=== PATIENT | male | born 1955 | race Caucasian/White ===

== ENCOUNTER 2018-09-09 12:15 | Inpatient (IN) | payer MEDICAID, OTHER ==
[~2018-09-09] VITALS: Ht 172.7 cm; Wt 78.0 kg
[2018-09-09 12:49] LABS: BASOPHILS % (AUTO) 0.3 % (0.0-2.0); EOSINOPHILS # (AUTO) 0.1 K/uL (0.0-0.7); EOSINOPHILS % (AUTO) 0.8 % (0.0-7.0); HEMATOCRIT 34.6 % (36.7-47.1); HEMOGLOBIN 11.8 g/dL (12.5-16.3); LYMPHOCYTES # (AUTO) 0.9 K/uL (20.0-40.0); LYMPHOCYTES % (AUTO) 8.6 % (20.5-51.5); MEAN CORPUSCULAR HEMOGLOBIN 30.2 uug (23.8-33.4); MEAN CORPUSCULAR HGB CONC 34 g/dL (32.5-36.3); MEAN CORPUSCULAR VOLUME 88.7 fL (73.0-96.2); MONOCYTES # (AUTO) 1.2 K/uL (2.0-10.0); MONOCYTES % (AUTO) 11.1 % (0.0-11.0); NEUTROPHILS # (AUTO) 8.3 K/uL (1.8-8.9); NEUTROPHILS % (AUTO) 79.2 % (38.5-71.5); PLATELET COUNT (AUTO) 279 K/uL (152-348); WHITE BLOOD COUNT (AUTO) 10.5 K/uL (3.6-10.2)
[2018-09-09 12:53] LABS: CREATININE 1.2 mg/dL (0.6-1.3); POTASSIUM 4.9 mmol/L (3.5-5.1)
[2018-09-09 12:59] LABS: BILIRUBIN,DIRECT 0.2 mg/dL (0.0-0.2); BILIRUBIN,TOTAL 0.6 mg/dL (0.2-1.0); TOTAL PROTEIN, SERUM 8.5 g/dL (6.4-8.2)
[2018-09-09 13:16] LABS: *BILIRUBIN,URIN NEGATIVE (NEGATIVE); *CLARITY,URINE CLEAR (CLEAR); *COLOR,URINE YELLOW (YELLOW); *KETONES,URINE TRACE (NEGATIVE); LEUKOCYTE ESTERASE ,URINE NEGATIVE (NEGATIVE); NITRITE, URINE NEGATIVE (NEGATIVE); PH,URINE 5.5 (5.0-8.0); UGLUCOSE NEGATIVE (NEGATIVE)
[2018-09-09 13:17] LABS: *BLOOD, URINE TRACE (NEGATIVE)
[2018-09-09 13:18] LABS: BACTERIA,URINE FEW /HPF (NONE SEEN); MUCUS,URINE FEW /LPF (0-FEW); RBC,URINE 0-3 /HPF (0-3); SQUAMOUS EPITHELIAL CELL,UR FEW /HPF (NONE SEEN); WBC,URINE 0-3 /HPF (0-3)
--- NOTE | 2018-09-09 13:27 | NUR ---
1st contact with patient, -patient is AOx4,just came from CT scan, patient is calm & breathing easily, +tolerable abdominal pains, refused pain medicines@this time
[2018-09-09] MEDS ORDERED: JANUMET (13:33)
[2018-09-09] MEDS ORDERED: GLIMEPIRIDE (13:33)
[2018-09-09] MEDS ORDERED: CLOP75TA15 PO (13:33)
[2018-09-09] MEDS ORDERED: LIPITOR (13:33)
[2018-09-09] MEDS ORDERED: INSU100V7 SQ (13:33)
[2018-09-09] MEDS ORDERED: ASPI81TA31 PO (13:33)
[2018-09-09] MEDS ORDERED: METOPROLOL (13:33)
[2018-09-09] MEDS ORDERED: METRONIDAZOLE 500 MG/NS 100 ML PIGGYBACK IV ONE (13:45)
[2018-09-09] MEDS ORDERED: MORPHINE SULFATE 4 MG/1 ML DISP.SYRIN IV ONE (13:45)
[2018-09-09] MEDS ORDERED: MORPHINE SULFATE 4 MG/1 ML DISP.SYRIN ONE (13:45)
[2018-09-09] MEDS ORDERED: CEFTRIAXONE 2 G in IV DEXTROSE 5% 100 ML IV ONE (13:45)
[2018-09-09] MEDS ORDERED: METRONIDAZOLE 500 MG/NS 100ML 100 ML IV ONE (13:46)
[2018-09-09] MEDS ORDERED: MORPHINE SULFATE 2 MG/1 ML DISP.SYRIN IV PRN (14:15)
[2018-09-09] MEDS ORDERED: DEXTROSE 50% 50 ML DISP.SYRIN IV PRN (14:15)
[2018-09-09] MEDS ORDERED: ONDANSETRON 4 MG/2 ML VIAL IV PRN (14:15)
[2018-09-09] MEDS ORDERED: HYDROCODONE/APAP 5-325MG TABLET PO PRN (14:15)
[2018-09-09] MEDS ORDERED: Z GUARD REMEDY PASTE 57 GM TUBE TOP PRN (14:15)
[2018-09-09] MEDS ORDERED: MAGNESIUM HYDROXIDE 30 ML LIQUID UDC PO PRN (14:15)
[2018-09-09] MEDS ORDERED: HYDROCODONE/APAP 10-325 MG TABLET PO PRN (14:15)
[2018-09-09] MEDS ORDERED: ACETAMINOPHEN 325 MG TABLET PO PRN (14:15)
--- NOTE | 2018-09-09 14:28 | NUR ---
2nd floor Nurse Sarah accepted hands off report, pending admitting papers from ER registration staff Gurdeep@this time
--- NOTE | 2018-09-09 15:15 | NUR ---
PATIENT ADMITTED TO ROOM 325 UNDER MEDSUR UNIT FROM ER, ARRIVED VIA [facility]ATTY, AAOX4 AMBULATORY. DIAGNOSIS: RUPTURED APPENDICITIS. ORIENTED TO ROOM AND UNIT. ADMISSION ORDERS FROM GISELA GARCIA. NURSING ADMISSION ASSESSMENTS TO BE COMPLETED. COMFORT MEASURES PROVIDED CALL LIGHT WITHIN REACH. WILL CONTINUE TO MONITOR CLOSELY.
[2018-09-09 15:19] VITALS: BP 126/64
[2018-09-09] MEDS: IV D5 1/2 NS 1000 ML 1,000 ML IV PRN (16:15)
[2018-09-09] MEDS: BLOOD SUGAR DIAGNOSTIC 1 EACH STRIP VI SCH ×2 (16:18→20:55)
--- NOTE | 2018-09-09 17:30 | NUR ---
PATIENT SEEN AND EXAMINED BY DR. HENDERSON W/ ORDERS FOR CT GUIDED APPENDICEAL ABSCESS, ZOSYN IV ATB Q8HRS, ROCEPHIN 2MG IV Q DAILY, NOTED AND CARRIED OUT. PROCEDURE CONSENT SIGNED BY PATIENT AND PLACED IN CHART.
[2018-09-09 19:33] VITALS: BP 114/56
[2018-09-09] MEDS: METRONIDAZOLE 500 MG/NS 100ML 500 MG in PREMIXED 1 EACH IV SCH (20:55)
[2018-09-09] MEDS: FAMOTIDINE. 20 MG/2 ML VIAL IV SCH (20:55)
[2018-09-09] MEDS: ATORVASTATIN 10 MG TABLET PO SCH (21:00)
[2018-09-09] MEDS: DOCUSATE SODIUM 250 MG CAPSULE PO SCH (21:00)
[2018-09-09] MEDS: INSULIN GLARGINE,HUM 300 UNITS/3 ML CARTRIDGE SQ SCH (21:11)
[2018-09-10 03:34] VITALS: BP 103/57
[2018-09-10] MEDS: METRONIDAZOLE 500 MG/NS 100ML 500 MG in PREMIXED 1 EACH IV SCH ×3 (05:44→22:08)
[2018-09-10] MEDS: BLOOD SUGAR DIAGNOSTIC 1 EACH STRIP VI SCH ×4 (05:54→20:54)
[2018-09-10 06:32] LABS: BASOPHILS % (AUTO) 0.3 % (0.0-2.0); EOSINOPHILS # (AUTO) 0.1 K/uL (0.0-0.7); EOSINOPHILS % (AUTO) 1.6 % (0.0-7.0); HEMATOCRIT 32.6 % (36.7-47.1); HEMOGLOBIN 11.1 g/dL (12.5-16.3); LYMPHOCYTES # (AUTO) 0.9 K/uL (20.0-40.0); LYMPHOCYTES % (AUTO) 15.5 % (20.5-51.5); MEAN CORPUSCULAR HEMOGLOBIN 30.1 uug (23.8-33.4); MEAN CORPUSCULAR HGB CONC 34 g/dL (32.5-36.3); MEAN CORPUSCULAR VOLUME 88.2 fL (73.0-96.2); MONOCYTES # (AUTO) 0.9 K/uL (2.0-10.0); MONOCYTES % (AUTO) 14.7 % (0.0-11.0); NEUTROPHILS # (AUTO) 4.1 K/uL (1.8-8.9); NEUTROPHILS % (AUTO) 67.9 % (38.5-71.5); PLATELET COUNT (AUTO) 262 K/uL (152-348); RED BLOOD CELL COUNT(AUTO) 3.69 MIL/uL (4.06-5.63)
[2018-09-10 06:49] LABS: BILIRUBIN,TOTAL 0.5 mg/dL (0.2-1.0); MAGNESIUM 1.6 mg/dL (1.8-2.4); PHOSPHOROUS 3.7 mg/dL (2.5-4.9); POTASSIUM 3.9 mmol/L (3.5-5.1)
--- NOTE | 2018-09-10 06:50 | NUR ---
Patient awake and resting comfortably in bed upon receiving into care. Family at bedside. Refused pain medications at this time. NPO status. IV D5 0.45 NS infusing at 75 cc/hr. Blood sugar taken and WNL. No voiced concerns. All needs met.
[2018-09-10 07:00] LABS: THYROID STIMULATING HORMONE 1.042 mIU/mL (0.358-3.740)
[2018-09-10] MEDS: IV D5 1/2 NS 1000 ML 1,000 ML IV PRN (07:54)
[2018-09-10] MEDS: FAMOTIDINE. 20 MG/2 ML VIAL IV SCH ×2 (08:03→21:13)
[2018-09-10] MEDS ORDERED: PANTOPRAZOLE SODIUM 40 MG VIAL IV SCH (09:00)
[2018-09-10 11:29] VITALS: BP 111/54
[2018-09-10] MEDS: INSULIN REGULAR, HUMAN 300 UNIT/3 ML VIAL SQ PRN ×3 (11:29→21:20)
[2018-09-10] MEDS ORDERED: NALOXONE HCL 0.4 MG/ML AMPUL IV PRN ×2 (12:15→12:30)
[2018-09-10] MEDS: MAGNESIUM SULFATE/D5W 100 ML IV SCH ×2 (12:58→14:24)
[2018-09-10] MEDS ORDERED: LIDOCAINE HCL 1% 20 ML VIAL ONE (14:34)
[2018-09-10 15:44] VITALS: BP 123/66
[2018-09-10] MEDS ORDERED: MIDAZOLAM HCL 2 MG/2 ML VIAL IV PRN (16:00)
[2018-09-10] MEDS ORDERED: FENTANYL CITRATE 100 MCG/2 ML AMPUL IV PRN (16:00)
[2018-09-10] MEDS: CEFTRIAXONE 2 G in IV DEXTROSE 5% 100 ML IV SCH (16:25)
--- NOTE | 2018-09-10 19:05 | NUR ---
Patient did not undergo removal of abscess CT procedure. As per recovery nurse, the MD seen small amount of abscess which cannot remove. Continue ATB therapy with good effect. no adverse reaction noted. JAKE Medina aware, MD Rios notified as per JAKE Medina. Resumed cardiac diet started dinner time. will continue monitor
--- NOTE | 2018-09-10 19:35 | NUR ---
received patient from the day shift, patient is fully oriented, good, mood, family present. Comfort and safety provided, instructed to call before ambulation.
[2018-09-10 20:13] VITALS: BP 127/69
[2018-09-10] MEDS: DOCUSATE SODIUM 250 MG CAPSULE PO SCH (21:13)
[2018-09-10] MEDS: ATORVASTATIN 10 MG TABLET PO SCH (21:13)
[2018-09-10] MEDS: INSULIN GLARGINE,HUM 300 UNITS/3 ML CARTRIDGE SQ SCH (21:19)
[2018-09-11] MEDS: IV D5 1/2 NS 1000 ML 1,000 ML IV PRN ×2 (05:36→18:32)
[2018-09-11] MEDS: METRONIDAZOLE 500 MG/NS 100ML 500 MG in PREMIXED 1 EACH IV SCH ×3 (05:36→23:07)
[2018-09-11 05:57] VITALS: BP 113/61
[2018-09-11] MEDS: BLOOD SUGAR DIAGNOSTIC 1 EACH STRIP VI SCH ×4 (07:00→21:55)
[2018-09-11 07:33] LABS: PHOSPHOROUS 3.5 mg/dL (2.5-4.9); POTASSIUM 4.2 mmol/L (3.5-5.1)
[2018-09-11 07:41] LABS: BASOPHILS % (AUTO) 0.4 % (0.0-2.0); EOSINOPHILS # (AUTO) 0.1 K/uL (0.0-0.7); EOSINOPHILS % (AUTO) 2.4 % (0.0-7.0); HEMATOCRIT 33.5 % (36.7-47.1); HEMOGLOBIN 11.6 g/dL (12.5-16.3); LYMPHOCYTES # (AUTO) 0.8 K/uL (20.0-40.0); LYMPHOCYTES % (AUTO) 18.3 % (20.5-51.5); MEAN CORPUSCULAR HEMOGLOBIN 31.1 uug (23.8-33.4); MEAN CORPUSCULAR HGB CONC 35 g/dL (32.5-36.3); MEAN CORPUSCULAR VOLUME 89.9 fL (73.0-96.2); MONOCYTES # (AUTO) 0.7 K/uL (2.0-10.0); MONOCYTES % (AUTO) 16.7 % (0.0-11.0); NEUTROPHILS # (AUTO) 2.6 K/uL (1.8-8.9); NEUTROPHILS % (AUTO) 62.2 % (38.5-71.5); PLATELET COUNT (AUTO) 256 K/uL (152-348); RED BLOOD CELL COUNT(AUTO) 3.72 MIL/uL (4.06-5.63)
[2018-09-11 07:59] LABS: WHITE BLOOD COUNT (AUTO) 4.1 K/uL (3.6-10.2)
--- NOTE | 2018-09-11 08:00 | NUR ---
report given to the day shift. Patient slept well at night, did not complain of pain. Ambulated to the bathroom several times. Comfort and safety measures are in place.
[2018-09-11] MEDS: INSULIN REGULAR, HUMAN 300 UNIT/3 ML VIAL SQ PRN ×4 (08:26→22:11)
[2018-09-11] MEDS: FAMOTIDINE. 20 MG/2 ML VIAL IV SCH ×2 (08:37→21:47)
[2018-09-11 11:31] LABS: BAND % (MANUAL) 4 % (0-10); EOSINOPHILS % (MANUAL) 2 % (0-8); LYMPHOCYTES % (MANUAL) 20 % (20-40); METAMYELOCYTES % 2 % (0-1); MONOCYTES % (MANUAL) 11 % (2-10); NEUTROPHILS % (MANUAL) 61 % (42-75)
[2018-09-11 11:54] VITALS: BP 147/60
[2018-09-11] MEDS ORDERED: CEFT2VIA14 IV (13:46)
[2018-09-11] MEDS ORDERED: CIPR-262 PO (13:46)
[2018-09-11] MEDS ORDERED: ATOR10TA PO (13:46)
[2018-09-11] MEDS ORDERED: DOCU250C14 PO (13:46)
[2018-09-11] MEDS ORDERED: METR500T PO (13:46)
[2018-09-11] MEDS ORDERED: METR500T IV (13:46)
[2018-09-11] MEDS: CEFTRIAXONE 2 G in IV DEXTROSE 5% 100 ML IV SCH (15:00)
[2018-09-11 15:23] VITALS: BP 114/56
--- NOTE | 2018-09-11 18:40 | NUR ---
Patient resting in bed, family at bedside. No complaints of pain, no distress noted. Right upper arm midline patent, in place. Fluids running continuously. Educated patient about diabetic diet, blood sugar monitoring and control. Patient verbalized understanding. Addressed patient's current diet to RESIDENTIAL DIRECT SUPPORT PROFESSIONAL, per RESIDENTIAL DIRECT SUPPORT PROFESSIONAL to keep patient on regular diet. Discharge held until tomorrow, discharge instructions given today. Patient has prescription. Home health ([facility]) will follow up tomorrow and patient will be discharged on two days of IV antibiotics. Patient information given to [place], family is in contact with case management from [place]. Will endorse care to oncoming shift.
--- NOTE | 2018-09-11 19:40 | NUR ---
Patient resting in bed, family at bedside. No complaints of pain, no distress noted. Right upper arm midline patent, and intact. C/O constipation. comfort and safety provided.
[2018-09-11 20:42] VITALS: BP 108/69
[2018-09-11] MEDS: DOCUSATE SODIUM 250 MG CAPSULE PO SCH (21:46)
[2018-09-11] MEDS: ATORVASTATIN 10 MG TABLET PO SCH (21:46)
[2018-09-11] MEDS: INSULIN GLARGINE,HUM 300 UNITS/3 ML CARTRIDGE SQ SCH (22:08)
[2018-09-12 05:28] VITALS: BP 102/57
[2018-09-12] MEDS: METRONIDAZOLE 500 MG/NS 100ML 500 MG in PREMIXED 1 EACH IV SCH (06:00)
[2018-09-12] MEDS: BLOOD SUGAR DIAGNOSTIC 1 EACH STRIP VI SCH (07:03)
--- NOTE | 2018-09-12 07:30 | NUR ---
patient slept through the nigh, milk of Mag given HS. No BM in the morning. denies, pain, good mood. No acute distress noted. Endorsed to the day shift nurse.
[2018-09-12] MEDS: INSULIN REGULAR, HUMAN 300 UNIT/3 ML VIAL SQ PRN (08:13)
[2018-09-12] MEDS: FAMOTIDINE. 20 MG/2 ML VIAL IV SCH (08:25)
--- NOTE | 2018-09-12 11:16 | NUR ---
dc orders received noted and carried out,dc instruction and education given to the pt .pt left the facility via private car in stable condition, with midline for iv antibiotic
== END 2018-09-12 11:20 | disposition home health service (06) | DRG 248 ==
LOC: ER 12:15 → MEDSURG3 14:34
PROVIDERS: ADMIT Registered Nurse; ATTEND Registered Nurse
PROC: 05HY33Z Insertion of Infusion Device into Upper Vein, Percutaneous Approach (ICD-10-PCS; principal; 2018-09-11)
DX: K35.33 Acute appendicitis with perforation, localized peritonitis, and gangrene, with abscess (principal); E11.65 Type 2 diabetes mellitus with hyperglycemia; K76.0 Fatty (change of) liver, not elsewhere classified; E78.5 Hyperlipidemia, unspecified; E86.0 Dehydration; Z95.5 Presence of coronary angioplasty implant and graft; Z86.73 Personal history of transient ischemic attack (TIA), and cerebral infarction without residual deficits; Z79.02 Long term (current) use of antithrombotics/antiplatelets; Z79.4 Long term (current) use of insulin; I25.10 Atherosclerotic heart disease of native coronary artery without angina pectoris; I10 Essential (primary) hypertension; D64.9 Anemia, unspecified; E88.09 Other disorders of plasma-protein metabolism, not elsewhere classified; Z80.8 Family history of malignant neoplasm of other organs or systems; Z83.3 Family history of diabetes mellitus
CPT/HCPCS: 36415; 36569; 71045; 72192; 76705; 83690; 83735; 84100; 84443; 85025; 85730; 86850; 86900; 86901; 93005; A4663; G0378; J0696; J1815; J2270; J3475; J3490; J7050; J7060

== ENCOUNTER 2018-09-12 17:20 | Emergency (ER) | payer MEDICAID ==
[~2018-09-12] VITALS: Ht 172.7 cm; Wt 78.5 kg
[~2018-09-12 17:20] MED LIST: ASPI81TA31 PO; ATOR10TA PO; CEFT2VIA14 IV; CIPR-262 PO; CLOP75TA15 PO; DOCU250C14 PO; GLIMEPIRIDE; INSU100V7 SQ; JANUMET; METOPROLOL; METR500T IV; METR500T PO
--- NOTE | 2018-09-12 17:31 | NUR ---
PT A/OX4, PRESENTS TO THE ER STATING HE WAS JUST D/C FROM THIS HOSPITAL THIS AM AND WAS SUPPOSED TO CONTINUE IV ANTIBIOTICS W/ A HOME HEALTH NURSE AT 1400, BUT "NO ONE SHOWED UP". PT HAS A MIDLINE IN PLACE ON RUE. NAD. ER MD AT BEDSIDE FOR MSE.
[2018-09-12] MEDS ORDERED: CEFTRIAXONE 1 G VIAL ONE (17:40)
[2018-09-12] MEDS ORDERED: METRONIDAZOLE 500 MG/NS 100ML 100 ML IV ONE (17:41)
[2018-09-12] MEDS ORDERED: CEFTRIAXONE 2 G in IV DEXTROSE 5% 100 ML IV ONE (17:45)
[2018-09-12] MEDS ORDERED: METRONIDAZOLE 500 MG/NS 100 ML PIGGYBACK IV ONE (17:45)
--- NOTE | 2018-09-12 17:49 | NUR ---
MIDLINE IN RUE ACCESSED FOR IV ANTIBIOTICS PER ER MD ORDER.
--- NOTE | 2018-09-12 18:48 | NUR ---
IV ROCEPHIN COMPLETED. NO REACTIONS, PT WELL TOLERATED.
--- NOTE | 2018-09-12 19:08 | NUR ---
Patient discharged to home in stable conditon. Written and verbal after care instructions given. Patient verbalizes understanding of instructions. ALL BELONGINGS W/ PT. PT SELF-AMBULATED W/O DIFFICULTY. MIDLINE DRESSING ON RUE INTACT, NON-SOILED.
[2018-09-12 19:09] VITALS: BP 126/66
== END 2018-09-12 19:10 | disposition home or self-care (01) ==
LOC: ER 17:22
DX: R10.9 Unspecified abdominal pain (principal); E78.5 Hyperlipidemia, unspecified; E11.9 Type 2 diabetes mellitus without complications; Z76.0 Encounter for issue of repeat prescription; Z90.49 Acquired absence of other specified parts of digestive tract; Z79.2 Long term (current) use of antibiotics; Z79.82 Long term (current) use of aspirin; Z79.899 Other long term (current) drug therapy
CPT/HCPCS: 96365; 96368; 99283; J0696; J3490; J7060; A4663